=== PATIENT | female | born 2000 ===

== ENCOUNTER 2024-11-15 13:08 | Inpatient (IN) | payer OTHER ==
[~2024-11-15] VITALS: Ht 149.9 cm; Wt 2.7 kg
[2024-11-15 12:35] VITALS: BP 109/70
[2024-11-15] MEDS ORDERED: CEFAZOLIN SODIUM 1,000 MG VIAL ONE (13:12)
[2024-11-15] MEDS ORDERED: RINGERS SOLUTION,LACTATED 1,000 ML IV SCH ×2 (13:15→17:30)
[2024-11-15] MEDS ORDERED: OXYTOCIN 500 ML IV ONE (13:30)
[2024-11-15] MEDS ORDERED: PRENATAL TABLE1 EAC1 PO (13:32)
[2024-11-15] MEDS ORDERED: FOLIC ACID20 MG PO (13:32)
[2024-11-15] MEDS ORDERED: VITAMIN D310 MC4 PO (13:33)
[2024-11-15] MEDS ORDERED: CEFAZOLIN SODIUM 1,000 MG VIAL IV SCH (14:00)
[2024-11-15 15:00] LABS: BASO % 0.1 % (0.1-1.2); HEMATOCRIT 35.3 % (34.1-44.9); HEMOGLOBIN 11.9 g/dL (11.2-15.7); LYMPH # 0.76 (1.18-3.74); LYMPH % 5.3 % (19.3-53.1); MEAN CORPUSCULAR HEMOGLOBIN 28.1 pg (25.6-32.2); MONO # 0.65 (0.24-0.82); MONO % 4.5 % (4.7-12.5); NEUT # 12.89 (1.56-6.13); NEUT % 89.5 % (34.0-71.1); PLATELET COUNT 196 K/uL (163-369); RED BLOOD COUNT 4.24 M/uL (3.93-5.22); RED CELL DISTRIBUTION WIDTH 14.5 % (11.6-14.4)
[2024-11-15 15:01] LABS: INR < 0.93; PARTIAL THROMBOPLASTIN TIME 25.9 SECONDS (22.0-34.0); PROTHROMBIN TIME 10.1 SECONDS (9.0-11.5)
[2024-11-15 15:06] LABS: ALBUMIN 2.8 gm/dL (3.4-5.0); BILIRUBIN TOTAL 0.42 mg/dL (0.3-1.2); CALCIUM 9.3 mg/dL (8.5-10.1); CREATININE SERUM 0.54 mg/dL (0.55-1.02); GFR 136.47; GLOBULINA 3.4 G/DL (2.4-3.5); POTASSIUM 4.84 mEq/L (3.5-5.1); TOTAL PROTEIN 6.2 gm/dL (6.4-8.2)
[2024-11-15 15:30] VITALS: BP 103/62
[2024-11-15] MEDS ORDERED: METOCLOPRAMIDE HCL 5 MG/ML VIAL ONE (17:16)
[2024-11-15] MEDS ORDERED: OXYTOCIN 10 UNITS/ML VIAL ONE (17:23)
[2024-11-15] MEDS ORDERED: ERYTHROMYCIN BASE OPHT 1GM EACH TUBE OP ONE (17:24)
[2024-11-15] MEDS ORDERED: MORPHINE SULFATE 4 MG/ML CARTRIDGE IV PRN (17:30)
[2024-11-15] MEDS ORDERED: CEFAZOLIN SODIUM 1,000 MG VIAL IV NR (17:45)
[2024-11-15] MEDS ORDERED: METOCLOPRAMIDE HCL 5 MG/ML VIAL IV ONE (17:45)
[2024-11-15] MEDS ORDERED: OXYTOCIN 1,000 ML IV ONE (17:45)
[2024-11-15] MEDS ORDERED: ONDANSETRON HCL 2 MG/ML VIAL IV SCH (18:00)
[2024-11-15] MEDS ORDERED: ACETAMINOPHEN 500 MG GEL..CAP PO SCH (18:00)
[2024-11-15] MEDS ORDERED: KETOROLAC TROMETHAMINE 30 MG VIAL IV SCH (18:00)
[2024-11-15] MEDS ORDERED: KETOROLAC TROMETHAMINE 30 MG VIAL ONE (19:21)
[2024-11-15 21:00] VITALS: BP 117/81
[2024-11-15] MEDS ORDERED: OXYTOCIN 20 UNITS/1000ML RL PIGGYBAG IV ONE (21:19)
[2024-11-15] MEDS ORDERED: OXYTOCIN 10 UNITS/ML VIAL IV ONE (22:30)
[2024-11-16] MEDS ORDERED: CEFAZOLIN SODIUM 1,000 MG VIAL IV SCH
[2024-11-16 00:44] VITALS: BP 124/72
[2024-11-16] MEDS ORDERED: SIMETHICONE 125 MG CAPSULE PO SCH (01:00)
[2024-11-16] MEDS ORDERED: GABAPENTIN 300 MG CAPSULE PO SCH (01:00)
[2024-11-16 06:15] VITALS: BP 107/69
[2024-11-16 06:58] LABS: BASO % 0.1 % (0.1-1.2); EOS # 0.02 (0.04-0.54); EOS % 0.1 % (0.7-7.0); HEMATOCRIT 31.6 % (34.1-44.9); HEMOGLOBIN 10.6 g/dL (11.2-15.7); LYMPH # 1.19 (1.18-3.74); MEAN CORPUSCULAR HEMOGLOBIN 27.8 pg (25.6-32.2); MONO # 1.16 (0.24-0.82); MONO % 7.8 % (4.7-12.5); NEUT # 12.44 (1.56-6.13); NEUT % 83.5 % (34.0-71.1); PLATELET COUNT 167 K/uL (163-369); RED BLOOD COUNT 3.81 M/uL (3.93-5.22); RED CELL DISTRIBUTION WIDTH 14.5 % (11.6-14.4)
[2024-11-16] MEDS ORDERED: KETOROLAC TROMETHAMINE 10 MG TABLET PO SCH (08:00)
[2024-11-16] MEDS ORDERED: OxyCODONE HCL 5 MG TABLET (ROXICODONE) PO PRN (08:00)
[2024-11-16 08:01] VITALS: BP 108/69
[2024-11-16] MEDS ORDERED: DOCUSATE SODIUM 100MG CAP PO SCH (09:00)
[2024-11-16 16:00] VITALS: BP 95/64; O2SAT 97
[2024-11-16 20:00] VITALS: BP 91/57
[2024-11-17 01:38] VITALS: BP 98/60
[2024-11-17 09:25] VITALS: BP 107/69
== END 2024-11-17 14:43 | disposition home or self-care (01) | DRG 788 ==
LOC: LDR 13:08 → OB/GYN 17:47
PROVIDERS: ADMIT Obstetrics & Gynecology; ATTEND Obstetrics & Gynecology
PROC: 4A1HXCZ Monitoring of Products of Conception, Cardiac Rate, External Approach (ICD-10-PCS; 2024-11-15)
PROC: 10D00Z1 Extraction of Products of Conception, Low, Open Approach (ICD-10-PCS; principal; 2024-11-15 17:00)
DX: O36.8130 Decreased fetal movements, third trimester, not applicable or unspecified (principal); Z3A.38 38 weeks gestation of pregnancy; Z37.0 Single live birth